=== PATIENT | male | born 1995 | race Caucasian/White ===

== ENCOUNTER 2021-09-07 10:35 | Emergency (ER) | payer OTHER, SELFPAY ==
--- NOTE | ~2021-09-07 | CT_ITS ---
EXAMINATION: CT SOFT TISSUE NECK WITH CONTRAST CLINICAL INFORMATION: Left jaw/neck pain and swelling. Question abscess. COMPARISON: None TECHNIQUE: Following the intravenous administration of 60 mL of Omnipaque 350 intravenous contrast, helical imaging was performed in the axial plane with generation of coronal and sagittal reformatted images. This CT examination was performed using dose optimization techniques as appropriate, variously including the following: *Automated exposure control *Adjustment of mA and/or kV according to patient size (this includes techniques or standardized protocols for targeted exams where dose is matched to indication/reason for exam; i.e. extremities or head) *Use of iterative reconstruction technique DLP: 389 mGy-cm FINDINGS: Periapical lucency surrounding the root of the left mandibular second molar tooth with dehiscence of the lingual surface on series 3-162 and low-density nonloculated fluid or inflammatory change along the lingual surface of the mandible measuring approximately 0.5 x 1.3 x 1.1 cm in size. No well-formed peripherally enhancing soft tissue abscess is identified. Mild the subcutaneous fat stranding about the left mandible and submental tissues. Slightly prominent left submandibular lymph node measuring 0.7 cm in short axis, likely reactive. No cervical lymphadenopathy by size criteria. Major salivary glands and thyroid gland are unremarkable. No mucosal space mass is identified. Parapharyngeal fat is symmetric normal in appearance. Globes and retro-orbital structures are unremarkable. Common and internal carotid arteries and internal jugular veins opacify normally. Visualized lung apices are clear. No adenopathy in the visualized upper mediastinum. Aortic arch normal caliber. Visualized intracranial contents are grossly unremarkable. Review of bone windows demonstrates no acute fracture or suspicious osseous lesion. Visualized mastoid air cells are normally aerated. Small amount of foamy mucous and mild mucosal thickening in the right sphenoid sinus. Minimal mucosal thickening along the floor the left maxillary antrum. CT/CT soft tissue neck w con IMPRESSION: 1. Periapical lucency surrounding the root of the left second mandibular molar tooth with focal dehiscence of the lingual surface of the mandible and a small overlying low-density area compatible with phlegmon or early developing fluid collection abscess along the lingual surface of the mandible measuring approximately 0.5 x 1.3 x 1.1 cm.
[2021-09-07 10:56] VITALS: BP 131/77; PULSE 106; RESP 20; TEMP 37.3; O2SAT 96; BMI 24.1
[2021-09-07 11:15] LABS: MANUAL DIFF FLAG NO
[2021-09-07 11:21] LABS: Basophils Percent Auto 0.2 % (0-2); Eosinophils Absolute Auto 0.1 X10*3/uL (0.0-0.4); Eosinophils Percent Auto 0.3 % (0-4); Hematocrit 39.5 % (42.0-52.0); Hemoglobin 13.9 g/dl (14.0-18.0); Imm Gran Abs Auto 0.07 X10*3/uL (0.00-0.03); Imm Gran Pct Auto 0.5 % (0.0-0.4); Lymphocytes Percent Auto 13.8 % (20-40); Mean Corpuscular HGB Conc 35.2 g/dl (31.0-36.0); Mean Corpuscular Hemoglobin 30.8 pg (27.0-33.0); Mean Corpuscular Volume 87.6 fL (80.0-98.0); Mean Platelet Volume 10.2 fL (9.4-12.4); Monocytes Absolute Auto 1.2 X10*3/uL (0.1-1.2); Neutrophils Absolute Auto 11.1 x10*3/uL (2.0-8.3); Neutrophils Percent Auto 77.2 % (45-73); Platelet Count 190 X10*3/uL (160-400); Red Blood Count 4.51 X10*6/uL (4.60-5.80); Red Cell Distribution Width 12.3 % (11.0-16.0); White Blood Count 14.3 X10*3/uL (4.8-10.8)
[2021-09-07 11:41] LABS: Strep A Nucleic Acid Negative (Negative)
[2021-09-07 11:44] LABS: Anion Gap 15 (12-20); Blood Urea Nitrogen 13 mg/dL (9-16); Calcium 9.7 mg/dL (8.4-10.2); Carbon Dioxide 25 mmol/L (22-29); Chloride 104 mmol/L (96-108); Creatinine Clr Calc Pharmacy 115.9; Estimated Glomerular Filt Rate > 60; Glucose Random 100 mg/dL (60-115); Potassium 3.6 mmol/L (3.3-5.1); Sodium 140 mmol/L (135-145)
[2021-09-07 11:46] LABS: COVID-19 Test Negative (Negative); IDNOW Serial# 16C4AD1C
[2021-09-07] MEDS: Ketorolac Tromethamine 30 MG/ML VIAL IVPUSH (16:28)
--- NOTE | 2021-09-07 16:49 | ED_ITS ---
HPI - Dental/Oral General Chief complaint: General Medical Stated complaint: fever , shoulder pain , pressure in L eye Time Seen by Provider: 09/07/21 15:42 Source: patient and family (Mother ) Mode of arrival: ambulatory Limitations: no limitations History of Present Illness HPI Narrative: 26-year-old male who denies any significant past medical history presenting to the ED with his mother at bedside with complaints of left jaw/dental pain since Tuesday worse today reports he also noticed some swelling to the left side of his neck and he had a fever at home at 101.2 around 08:00 prior to arrival 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 He denies any headaches, dizziness, neck stiffness, trouble breathing, cough, nasal congestion/rhinorrhea, sore throat, recent travel or sick contacts, similar to other symptoms, recent oral intercourse, recent trauma or falls, ear pain, rashes, nausea/vomiting or any other symptoms complaints or concerns at this time. MD Complaint: tooth pain Teeth map: 1. Onset (ago): day(s) Duration: worsening Severity: severe Severity scale (1-10): >10 Relieving factors: nothing Exacerbating factors: chewing and swallowing Context: history of dental caries and poor dental care Associated symptoms: fever, gum swelling, pain with swallowing and sore throat Treatment prior to arrival: other (Tylenol at 07:00 prior to arrival) Related Data Previous Rx's Medication Instructions Recorded clindamycin HCl 150 mg capsule 450 mg PO TID dental abscess 14 09/07/21 days #126 caps ibuprofen 800 mg tablet 800 mg PO Q8H PRN pain #14 tabs 09/07/21 oxycodone 5 mg tablet 5 mg PO Q6H PRN pain #14 tabs 09/07/21 Allergies Allergy/AdvReac Type Severity Reaction Status Date / Time pollen extracts Allergy Eye Verified 09/07/21 11:03 Swelling Review of Systems Review of Systems: Constitutional : No Weight loss, No Fever, No Chills, No Night Sweats, No Fatigue, No Malaise ENT/Mouth : + left lower dental/jaw pain/swelling, No Hearing loss, No Ear Pain, No Nasal Congestion, No Sinus Pain, No Hoarseness, No Rhinorrhea, No Swallowing Difficulty Eyes: No Eye Pain, No Swelling, No Redness, No Foreign Body, No Discharge, No Vision Changes Cardiovascular : No Chest Pain, No SOB, No Dyspnea on Exertion, No Orthopnea, No Edema, No Palpitations Respiratory : No Cough, No Sputum, No Wheezing, No Smoke Exposure, No Dyspnea Gastrointestinal : No Nausea, No Vomiting, No Diarrhea, No Constipation, No abdominal Pain, No Hematochezia, No Melena Genitourinary : no irregular bleeding, No Dysuria, No Urinary Frequency, No Hematuria, No Urinary Incontinence, No Urgency, No Flank Pain, No Urinary Flow Changes, No Hesitancy Musculoskeletal : No joint pain, No Myalgias, No Joint Swelling Skin : No Skin Lesions, No rash Neuro : No Weakness, No Numbness, No Paresthesias, No Loss of Consciousness, No Dizziness, No Headache Psych : No Anxiety/Panic, No Depression, No SI/HI/AH/VH, No Social Issues, Heme/Lymph: No Bruising, No Bleeding,No Lymphadenopathy Endocrine : No Polyuria, No Polydipsia, No Temperature Intolerance Yes all other systems are reviewed and are negative [facility] Past Medical History Attestation statement: The following information was validated with the patient. Source: old records reviewed, obtained from family and nursing notes reviewed Social History Social History Advance Directives: No Advance Directives Information Provided: No Physical Exam Vital Signs: Vital Signs: Last Vital Signs Temp 96.5 F L 09/07/21 17:52 Pulse 78 09/07/21 17:52 Resp 16 09/07/21 17:52 BP 109/63 09/07/21 17:52 Pulse Ox 97 09/07/21 17:52 O2 Del Method 09/07/21 17:52 BMI result Body Mass Index 24.1 vital signs have been reviewed as normal and appeared to be correct. Blood pressure normal. Heart rate 106. Respiration rate normal. Temperature normal. Oxygen saturation normal. Appearance: Alert. Oriented X3. No acute distress. Head: Normal external exam. Normocephalic. Atraumatic. Eyes: PERRLA. EOMI. Conjunctiva and sclera normal. Eyelids normal. ENT: EAC normal. TM's Normal. Pharynx normal. Uvula midline. Moist mucous membranes. No trismus noted. No drooling noted. No muffled voice noted. Dentition: Patient with poor dentition throughout with multiple old fractured teeth with multiple dental caries although no obvious dental/gingival/pharyngeal/tonsillar abscess on my exam at this time. Patient does have some trismus sign unable to completely open his mouth he reports pain with this. Gingival within normal limits. No fluctuance. No salivary duct obstruction noted. Neck: Normal inspection. Neck supple. FROM. No adenopathy. Thyroid Normal. No meningeal signs. No neck mass noted. Trachea midline. CVS: Normal heart rate and rhythm. Heart sound normal. No murmurs noted. Pulses normal throughout. Respiratory: No respiratory distress. Painless inspiration. Breath sounds normal. No wheezes/rales/rhonchi noted. Chest nontender. No accessory muscle usage noted or decreased air movement noted. Back: Full range of motion noted. Skin: Skin warm and dry. Normal skin color. Normal skin turgor. No rashes/lesions/lacerations noted. Extremities:Extremities exhibit normal range of motion. Extremities nontender. Neuro: Oriented X 3. No motor deficit. No sensory deficit. Reflexes normal. 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 - labs were obtained while the patient was in triage in patient with an elevated white blood cell count at 14,000. Mild anemia with an H&H of 13.9/39.5. Otherwise all other labs are within normal limits. UA revealed protein otherwise no evidence of UTI. Patient negative for COVID and strep. Therefore at this time will obtain blood cultures and lactic acid provide a L of IV fluids with IV antibiotics and obtain a CT scan of soft tissue neck to evaluate for possible dental abscess and re-evaluate. Reevaluation(s) Reevaluation #1: - soft tissue neck CT scan with contrast revealed possible abscess therefore me and Khushbuwer attempted to drain it and we mainly got blood therefore at this time patient is able to open his mouth a lot more and he feels much better will DC home with antibiotics and instructions return if any new or worsening symptoms follow up with his oral surgeon/dentist as soon as possible. Patient understands agrees with this plan. Time: 18:35 [facility] - Dental/Oral Medical Records Attestation: I reviewed the patient's medical records. Lab Data Attestation: I reviewed the patient's lab results. Result diagrams: 09/07/21 11:10 09/07/21 11:10 Labs: Lab Results 09/07/21 09/07/21 09/07/21 Range/Units 11:10 11:10 11:10 WBC 14.3 H (4.8-10.8) X10*3/uL RBC 4.51 L (4.60-5.80) X10*6/uL Hgb 13.9 L (14.0-18.0) g/dl Hct 39.5 L (42.0-52.0) % MCV 87.6 (80.0-98.0) fL MCH 30.8 (27.0-33.0) pg MCHC 35.2 (31.0-36.0) g/dl RDW 12.3 (11.0-16.0) % Plt Count 190 (160-400) X10*3/uL MPV 10.2 (9.4-12.4) fL Immature Gran % (Auto) 0.5 H (0.0-0.4) % Neut % (Auto) 77.2 H (45-73) % Lymph % (Auto) 13.8 L (20-40) % [place] % (Auto) 8.0 (2-11) % Eos % (Auto) 0.3 (0-4) % Baso % (Auto) 0.2 (0-2) % Lymph # (Auto) 2.0 (1.2-4.9) X10*3/uL [place] # (Auto) 1.2 (0.1-1.2) X10*3/uL Eos # (Auto) 0.1 (0.0-0.4) X10*3/uL Baso # (Auto) 0.0 (0.0-0.2) X10*3/uL Abs Immat Gran (auto) 0.07 H (0.00-0.03) X10*3/uL Absolute Neuts (auto) 11.1 H (2.0-8.3) x10*3/uL Absolute Nucleated RBC 0.000 (0.0-0.012) X10*3/uL Nucleated RBC % (auto) 0.0 (0.0-0.2) /100WBC Sodium 140 (135-145) mmol/L Potassium 3.6 (3.3-5.1) mmol/L Chloride 104 (96-108) mmol/L Carbon Dioxide 25 (22-29) mmol/L Anion Gap 15 (12-20) BUN 13 (9-16) mg/dL Creatinine 0.84 (0.5-1.4) mg/dL Estim Creat Clear Calc 115.9 Estimated GFR > 60 Random Glucose 100 (60-115) mg/dL Lactic Acid (0.5-2.0) mmol/L Calcium 9.7 (8.4-10.2) mg/dL Urine Color Urine Appearance Urine pH (5.0-8.0) Ur Specific [place] (1.005-1.025) Urine Protein (NEG-TRACE) MG/DL Urine Glucose (UA) (NEG) MG/DL Urine Ketones (NEG) MG/DL Urine Blood (NEG) Urine Nitrite (NEG) Ur Leukocyte Esterase (NEG) Urine RBC (0) /HPF Urine WBC (0-4) /HPF Ur Squamous Epith Cells /LPF Urine Bacteria /LPF Urine Mucus /LPF COVID-19 (NARCISO) (Negative) COVID-19 Clin Com S. pyogenes GrpA TOMMY Negative (Negative) 09/07/21 09/07/21 09/07/21 Range/Units 11:10 16:17 16:50 WBC (4.8-10.8) X10*3/uL RBC (4.60-5.80) X10*6/uL Hgb (14.0-18.0) g/dl Hct (42.0-52.0) % MCV (80.0-98.0) fL MCH (27.0-33.0) pg MCHC (31.0-36.0) g/dl RDW (11.0-16.0) % Plt Count (160-400) X10*3/uL MPV (9.4-12.4) fL Immature Gran % (Auto) (0.0-0.4) % Neut % (Auto) (45-73) % Lymph % (Auto) (20-40) % [place] % (Auto) (2-11) % Eos % (Auto) (0-4) % Baso % (Auto) (0-2) % Lymph # (Auto) (1.2-4.9) X10*3/uL [place] # (Auto) (0.1-1.2) X10*3/uL Eos # (Auto) (0.0-0.4) X10*3/uL Baso # (Auto) (0.0-0.2) X10*3/uL Abs Immat Gran (auto) (0.00-0.03) X10*3/uL Absolute Neuts (auto) (2.0-8.3) x10*3/uL Absolute Nucleated RBC (0.0-0.012) X10*3/uL Nucleated RBC % (auto) (0.0-0.2) /100WBC Sodium (135-145) mmol/L Potassium (3.3-5.1) mmol/L Chloride (96-108) mmol/L Carbon Dioxide (22-29) mmol/L Anion Gap (12-20) BUN (9-16) mg/dL Creatinine (0.5-1.4) mg/dL Estim Creat Clear Calc Estimated GFR Random Glucose (60-115) mg/dL Lactic Acid 0.6 (0.5-2.0) mmol/L Calcium (8.4-10.2) mg/dL Urine Color YELLOW Urine Appearance CLEAR Urine pH 6.0 (5.0-8.0) Ur Specific [place] >= 1.030 H (1.005-1.025) Urine Protein 1+ H (NEG-TRACE) MG/DL Urine Glucose (UA) NEG (NEG) MG/DL Urine Ketones 40 (NEG) MG/DL Urine Blood NEG (NEG) Urine Nitrite NEG (NEG) Ur Leukocyte Esterase NEG (NEG) Urine RBC 0-2 (0) /HPF Urine WBC 0-2 (0-4) /HPF Ur Squamous Epith Cells NONE /LPF Urine Bacteria NONE /LPF Urine Mucus 3+ /LPF COVID-19 (NARCISO) Negative (Negative) COVID-19 Clin Com See Note S. pyogenes GrpA TOMMY (Negative) Imaging Data CT soft tissue neck without contrast: Attestation: I personally reviewed and interpreted this imaging study as follows: Radiologist's impression: FINDINGS: Periapical lucency surrounding the root of the left mandibular second molar tooth with dehiscence of the lingual surface on series 3-162 and low-density nonloculated fluid or inflammatory change along the lingual surface of the mandible measuring approximately 0.5 x 1.3 x 1.1 cm in size. No well-formed peripherally enhancing soft tissue abscess is identified. Mild the subcutaneous fat stranding about the left mandible and submental tissues. Slightly prominent left submandibular lymph node measuring 0.7 cm in short axis, likely reactive. No cervical lymphadenopathy by size criteria. Major salivary glands and thyroid gland are unremarkable. No mucosal space mass is identified. Parapharyngeal fat is symmetric normal in appearance. Globes and retro-orbital structures are unremarkable. Common and internal carotid arteries and internal jugular veins opacify normally. Visualized lung apices are clear. No adenopathy in the visualized upper mediastinum. Aortic arch normal caliber. Visualized intracranial contents are grossly unremarkable. Review of bone windows demonstrates no acute fracture or suspicious osseous lesion. Visualized mastoid air cells are normally aerated. Small amount of foamy mucous and mild mucosal thickening in the right sphenoid sinus. Minimal mucosal thickening along the floor the left maxillary antrum. CT/CT soft tissue neck w con IMPRESSION: 1.? Periapical lucency surrounding the root of the left second mandibular molar tooth with focal dehiscence of the lingual surface of the mandible and a small overlying low-density area compatible with phlegmon or early developing fluid collection abscess along the lingual surface of the mandible measuring approximately 0.5 x 1.3 x 1.1 cm.? ? Critical Care Time Critical Care Time Critical Care Time: Yes Total Critical Care Time: 60 Attestation: I personally attest to this time spent taking care of the patient Discharge Plan Discharge Clinical Impression: Gingival abscess, Dental caries Patient Disposition: Home, Self-Care Instructions: Dental Abscess (ED) Prescriptions: New clindamycin HCl 150 mg capsule 450 mg PO TID 14 Days Qty: 126 0RF ibuprofen 800 mg tablet 800 mg PO Q8H PRN (Reason: pain) Qty: 14 0RF oxycodone 5 mg tablet 5 mg PO Q6H PRN (Reason: pain) Qty: 14 0RF Rx Instructions: Partial Fill upon patient request. Referrals: Physician,None [Primary Care Provider] - 1 week (your pcp and dentist/oral surgeon ) Stand Alone Forms: Work/School Release
[2021-09-07] MEDS: 0.9 % Sodium Chloride 1,000 ML 999 ML IVCONT (16:55)
[2021-09-07 16:56] LABS: Lactic Acid 0.6 mmol/L (0.5-2.0)
[2021-09-07 17:16] LABS: Appearance Urine CLEAR; Color Urine YELLOW; Glucose Urine UA NEG (NEG); Leukocyte Esterase Urine NEG (NEG); Nitrite Urine NEG (NEG); Specific Gravity - Urine >= 1.030 (1.005-1.025); UACC Culture Trigger NO; Urine Blood NEG (NEG); Urine Ketones 40 MG/DL (NEG); Urine Protein 1+ MG/DL (NEG-TRACE)
[2021-09-07] MEDS: iohexoL 350 MG/ML 100 ML INFUS..BTL IV (17:22)
[2021-09-07] MEDS: Clindamycin Phosphate/D5W 300 MG/50 ML PIGGYBACK 100 MG IV (17:51)
[2021-09-07 17:52] VITALS: BP 109/63; PULSE 78; RESP 16; TEMP 35.8; O2SAT 97
[2021-09-07 17:58] LABS: Mucus Urine 3+ /LPF; RBC Urine 0-2 /HPF (0); WBC Urine 0-2 /HPF (0-4)
[2021-09-07] MEDS: Lidocaine HCl 1 % MPF 5 ML VIAL SUBCUT (18:27)
[2021-09-07] MEDS: oxyCODONE HCl Immed Release 5 MG TABLET PO (18:47)
== END 2021-09-07 18:58 | disposition home or self-care (01) ==
PROVIDERS: Physician Assistant Medical; Emergency Provider Emergency Medicine
DX: K04.7 Periapical abscess without sinus (principal); R68.84 Jaw pain; R50.9 Fever, unspecified; M25.512 Pain in left shoulder; Z20.822 Contact with and (suspected) exposure to COVID-19; Z79.899 Other long term (current) drug therapy
CPT/HCPCS: 36415; 41800; 70491; 80048; 81001; 81003; 83605; 85025; 87040; 87635; 87651; 96365; 96372; 96375; 99284; J1885; Q9967